=== PATIENT | male | born 1965 | race Caucasian/White ===

== ENCOUNTER 2016-07-16 13:41 | Inpatient (IN) | payer OTHER ==
[~2016-07-16] VITALS: Ht 172.7 cm; Wt 68.9 kg
[2016-07-16] MEDS ORDERED: LORAZEPAM 2 MG/ML 1 ML VIAL IV STA (14:18)
--- NOTE | 2016-07-16 14:53 | DIAGNOSTIC IMAGING REPORT ---
CT SCAN OF THE BRAIN WITHOUT IV CONTRAST CLINICAL HISTORY: Seizure. COMPARISON STUDY: CT of the brain dated 01/17/2015. TECHNIQUE: Unenhanced axial CT scan of the brain is performed from the vertex to the skull base. Automated dose control exposure was utilized. CT DOSE: 810.83 mGy.cm FINDINGS: Brain parenchyma: The brain parenchyma is normal in appearance. There is no hemorrhage, mass effect, or evidence of acute territorial ischemia by CT criteria. Serna-white matter is preserved. No extra-axial fluid collection is seen. Ventricles, sulci, cisterns: Normal in configuration. Intracranial vasculature: The visualized intracranial vasculature at the skull base is normal in appearance. Calvarium: Unremarkable. Sinuses and mastoids: The visualized paranasal sinuses are clear. The mastoid air cells are well pneumatized. Orbits: The bony orbits are grossly intact. IMPRESSION: There is no hemorrhage, mass effect, or evidence of acute territorial ischemia by CT criteria. Electronically signed by: Cristian Mason M.D. 07/16/2016 2:51 PM Dictated Date/Time: 07/16/2016 2:43 PM
[2016-07-16 14:54] LABS: BASO % 0.5 %; BASO ABS # 0.03 K/uL (0-0.2); COMPLETE YES; EOS % 0.2 %; HEMATOCRIT 39.6 % (42-52); IG% 0.3 %; LYMPH % 7.5 %; MEAN CELL VOLUME 97.5 fL (80-100); MEAN CORPUSCULAR HEMOGLOBIN 34.5 pg (25-34); MEAN CORPUSCULAR HGB CONC 35.4 g/dl (32-36); MEAN PLATELET VOLUME 11.7 fL (7.4-10.4); MONO % 3.5 %; PLATELET COUNT 112 K/uL (130-400); RED BLOOD COUNT 4.06 M/uL (4.7-6.1); WHITE BLOOD COUNT 6.65 K/uL (4.8-10.8)
[2016-07-16 14:55] LABS: PROTHROMBIN TIME (PATIENT) 10.5 SECONDS (9.0-12.0)
[2016-07-16 15:03] LABS: BUN/CREATININE RATIO 5.8 (10-20); CALCIUM 9.6 mg/dl (8.5-10.1); CREATININE 1.2 mg/dl (0.60-1.40); MAGNESIUM 1.4 mg/dl (1.8-2.4); POTASSIUM 3.8 mmol/L (3.5-5.1)
[2016-07-16] MEDS ORDERED: MAGNESIUM SULFATE 1GM / D5W 1 GM BAG IV STA (15:05)
[2016-07-16 15:11] LABS: ACETAMINOPHEN < 2 ug/ml (10-30)
[2016-07-16] MEDS ORDERED: ONDANSETRON INJ 2 MG/ML 2 ML VIAL IV PRN (16:45)
[2016-07-16] MEDS ORDERED: CHLORDIAZEPOXIDE 25 MG CAP PO SCH (16:45)
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
[2016-07-16] MEDS ORDERED: OXYCODONE HCL IR 5 MG TAB (IMMEDIATE RELEASE) PO SCH (16:55)
[2016-07-16] MEDS ORDERED: THIAMINE HCL 100 MG TAB PO STA (17:04)
[2016-07-16] MEDS ORDERED: SODIUM CHLORIDE 0.9% 1000ML 1,000 ML IV ONE (17:45)
[2016-07-16] MEDS ORDERED: LORAZEPAM 2 MG/ML 1 ML VIAL IV PRN (17:45)
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
[2016-07-16 17:49] LABS: BENZODIAZEPINE, URINE NEG (NEG); COCAINE,URINE NEG (NEG); PHENCYCLIDINE, URINE NEG (NEG)
[2016-07-16 18:11] VITALS: BP 131/81; PULSE 105; TEMP 37.5; O2SAT 100; Ht 172.7 cm; Wt 68.9 kg
[2016-07-16] MEDS ORDERED: MULTI-VITAMIN INFUSION INJ 10 ML, THIAMINE HCL INJ 100 MG, FoLIC ACID INJ 1 MG in SODIU... IV SCH (18:30)
[2016-07-16] MEDS: CHLORDIAZEPOXIDE 25MG 1ST DOSE PO SCH (19:29)
[2016-07-16] MEDS: ENOXAPARIN 40 MG/0.4 ML SYR SC SCH (19:30)
[2016-07-16 19:33] VITALS: BP 142/75; PULSE 97; TEMP 36.7; O2SAT 97
[2016-07-16] MEDS ORDERED: INFLUENZA ADMINISTRATION CHARGE ONE (21:15)
[2016-07-16] MEDS ORDERED: INFLUENZA VIRUS QUAD VACCINE 0.5 ML SYR IM. ONE (21:15)
[2016-07-16] MEDS: SODIUM CHLORIDE 0.9% 1000ML 1,000 ML IV SCH (22:27)
[2016-07-16 23:38] VITALS: BP 117/76; PULSE 83; TEMP 37.3; O2SAT 98
[2016-07-17] VITALS (10 sets, daily range): BP systolic 106–127; BP diastolic 69–83; PULSE 74–95; TEMP 36.8–37.4; O2SAT 96–99
[2016-07-17] MEDS: OXYCODONE HCL IR 5 MG TAB (IMMEDIATE RELEASE) PO SCH ×4 (00:26→20:33)
[2016-07-17] MEDS: CHLORDIAZEPOXIDE 25MG 1ST DOSE PO SCH ×3 (00:26→11:42)
[2016-07-17] MEDS: SODIUM CHLORIDE 0.9% 1000ML 1,000 ML IV SCH ×3 (06:11→20:39)
[2016-07-17 06:37] LABS: HEMATOCRIT 33.5 % (42-52); MEAN CELL VOLUME 99.4 fL (80-100); MEAN CORPUSCULAR HEMOGLOBIN 33.5 pg (25-34); MEAN CORPUSCULAR HGB CONC 33.7 g/dl (32-36); RED BLOOD COUNT 3.37 M/uL (4.7-6.1); WHITE BLOOD COUNT 6.13 K/uL (4.8-10.8)
[2016-07-17 06:40] LABS: MEAN PLATELET VOLUME 11.6 fL (7.4-10.4); PLATELET COUNT 87 K/uL (130-400)
[2016-07-17 06:49] LABS: PROTHROMBIN TIME (PATIENT) 10.5 SECONDS (9.0-12.0)
[2016-07-17 07:10] LABS: BUN/CREATININE RATIO 7.5 (10-20); CALCIUM 8.2 mg/dl (8.5-10.1); MAGNESIUM 2.1 mg/dl (1.8-2.4); POTASSIUM 3.5 mmol/L (3.5-5.1); URIC ACID 6.2 mg/dl (2.6-7.2)
[2016-07-17 07:15] LABS: CREATININE 0.81 mg/dl (0.60-1.40)
[2016-07-17] MEDS: THIAMINE HCL 100 MG TAB PO SCH (07:39)
[2016-07-17] MEDS: FoLIC ACID TAB 400 MCG TAB PO SCH (07:39)
[2016-07-17] MEDS ORDERED: COLCHICINE 0.6 MG TAB PO SCH (09:00)
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
[2016-07-17] MEDS ORDERED: LORAZEPAM 1 MG TAB PO PRN (15:00)
--- NOTE | 2016-07-17 17:22 | Progress Note ---
Subjective Date of Service: Jul 17, 2016. Subjective Pt evaluation today including: conversation w/ patient, physical exam, chart review, lab review, review of inpatient medication list feeling better, no further seizures. wants to go home. still shaky. last drink friday night wants to quit, notes that he relapsed due to stressors with son legal issues, but notes son has been cleared of all charges. notes that he likes to fish. thinks he could do that for stress management. Problem List Medical Problems: (1) Alcohol withdrawal seizure Status: Acute (2) Seizures Status: Acute Review of Systems Neurologic: + see HPI (tremors, no seizures) ros otherwise negative except for as above Objective Vital Signs Date Time Temp Pulse Resp B/P Pulse Ox O2 Delivery O2 Flow Rate FiO2 07/17/16 15:53 97 07/17/16 15:53 97 Room Air 07/17/16 15:40 36.8 85 18 122/83 98 Room Air 07/17/16 11:59 98 Room Air 07/17/16 11:56 37.1 95 20 122/74 98 Room Air 07/17/16 08:00 98 Room Air 07/17/16 07:43 36.9 88 22 106/69 97 Room Air 07/17/16 04:01 37.0 88 18 127/69 99 Room Air 07/17/16 04:00 Room Air 07/17/16 00:00 Room Air 07/16/16 23:38 37.3 83 18 117/76 98 Room Air 07/16/16 20:00 Room Air 07/16/16 19:33 36.7 97 18 142/75 97 Room Air 07/16/16 18:11 37.5 105 18 131/81 100 Room Air Physical Exam General Appearance: no apparent distress Eyes: EOMI ENT: hearing grossly normal Neck: trachea midline Respiratory/Chest: no respiratory distress, no accessory muscle use 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 somewhat hypervigilant and frequent movements) Skin: normal color, warm/dry Laboratory Results Last 24 Hours Test 07/17/16 06:02 White Blood Count 6.13 K/uL Red Blood Count 3.37 M/uL Hemoglobin 11.3 g/dL Hematocrit 33.5 % Mean Corpuscular Volume 99.4 fL Mean Corpuscular Hemoglobin 33.5 pg Mean Corpuscular Hemoglobin Concent 33.7 g/dl RDW Standard Deviation 53.1 fL RDW Coefficient of Variation 14.7 % Platelet Count 87 K/uL Mean Platelet Volume 11.6 fL Prothrombin Time 10.5 SECONDS Prothromb Time International Ratio 1.0 Sodium Level 140 mmol/L Potassium Level 3.5 mmol/L Chloride Level 104 mmol/L Carbon Dioxide Level 27 mmol/L Anion Gap 9.0 mmol/L Blood Urea Nitrogen 6 mg/dl Creatinine 0.81 mg/dl Est Creatinine Clear Calc Drug Dose 102.0 ml/min Estimated GFR () 117.6 Estimated GFR (Non- 101.5 BUN/Creatinine Ratio 7.5 Random Glucose 92 mg/dl Uric Acid 6.2 mg/dl Calcium Level 8.2 mg/dl Magnesium Level 2.1 mg/dl Total Bilirubin 1.0 mg/dl Direct Bilirubin 0.3 mg/dl Aspartate Amino Transf (AST/SGOT) 218 U/L Alanine Aminotransferase (ALT/SGPT) 101 U/L Alkaline Phosphatase 141 U/L Total Protein 5.7 gm/dl Albumin 2.9 gm/dl Assessment and Plan DT's / EtOH withdrawal seizures -appearing more stable -anxious to go home - d/w pt that given time since last drink only ~48hrs and just seized yesterday, it would not really be all that safe (discussed it's possible that he wouldn't seize further, but that at the same time he's still very much in the window to seize more and status epilepticus can be life threatening/life ending event) -can wean librium -ativan prn withdrawal and obviously stat prn seizures EtOH abuse -appears to drink in response to stress -discussed healthier means of stress management - will try to use hobbies like fishing instead. discussed probably having at least one other "go to" option so that he has more than just one means to manage stress -risks of ongoing drinking have been described to him alcoholic hepatitis -fortunately no elevated bili or INR. -LFTs trended down some - f/u as outpt thrombocytopenia -almost certainly from EtOH related bone marrow suppression DVT proph -lovenox (will continue to follow plt) dispo - due to risk for recurrent seizure felt it most prudent to keep pt in hospital at least until tomorrow. by that time, on less librium, if he's not looking worse with withdrawal and has not seized again, he'd very likely be safe for home Continued [facility] stay due to: other (further monitoring) Discharge planning: home
[2016-07-17] MEDS ORDERED: CHLORDIAZEPOXIDE 25MG Q8H DOSE PO SCH (20:00)
[2016-07-17] MEDS: ENOXAPARIN 40 MG/0.4 ML SYR SC SCH (20:38)
[2016-07-18 00:01] VITALS: O2SAT 97
[2016-07-18] MEDS: SODIUM CHLORIDE 0.9% 1000ML 1,000 ML IV SCH ×2 (00:47→07:20)
[2016-07-18 03:12] VITALS: BP 125/75; PULSE 85; TEMP 36.9; O2SAT 95
[2016-07-18 04:00] VITALS: O2SAT 95
[2016-07-18] MEDS: OXYCODONE HCL IR 5 MG TAB (IMMEDIATE RELEASE) PO SCH (05:08)
[2016-07-18 06:30] LABS: HEMATOCRIT 32.6 % (42-52); MEAN CELL VOLUME 100.3 fL (80-100); MEAN CORPUSCULAR HEMOGLOBIN 34.5 pg (25-34); MEAN CORPUSCULAR HGB CONC 34.4 g/dl (32-36); RED BLOOD COUNT 3.25 M/uL (4.7-6.1); WHITE BLOOD COUNT 5.31 K/uL (4.8-10.8)
[2016-07-18 06:35] LABS: BASO % 0.2 %; BASO ABS # 0.01 K/uL (0-0.2); COMPLETE YES; EOS % 1.9 %; IG% 0.6 %; LYMPH % 19.4 %; LYMPH ABS # 1.03 K/uL (1.2-3.4); MEAN PLATELET VOLUME 11.7 fL (7.4-10.4); NEUT % 68.9 %; PLATELET COUNT 87 K/uL (130-400)
[2016-07-18 06:54] LABS: BUN/CREATININE RATIO 9.1 (10-20); CALCIUM 8.6 mg/dl (8.5-10.1); CREATININE 0.69 mg/dl (0.60-1.40); POTASSIUM 3.6 mmol/L (3.5-5.1)
[2016-07-18 07:37] VITALS: BP 137/83; PULSE 93; TEMP 37.3; O2SAT 98
--- NOTE | 2016-07-18 07:53 | Medical Student: [facility] ---
Med Student Progress Note Date of Service Jul 18, 2016. Subjective Pt evaluation today including: conversation w/ patient, physical exam, chart review, lab review, review of studies Pain: controlled PO Intake: tolerating po diet no acute events overnight. patient reports feeling well and says that his tremor has gotten better. denies any nausea, diarrhea, or constipation. says that his ankle pain and swelling continues to improve. no other complaints. Review of Systems Constitutional: No chills, No fever Respiratory: No cough Cardiac: No chest pain Abdomen: No nausea, No pain Objective Vital Signs Date Time Temp Pulse Resp B/P Pulse Ox O2 Delivery O2 Flow Rate FiO2 07/18/16 07:37 37.3 93 16 137/83 98 Room Air 07/18/16 04:00 95 Room Air 07/18/16 03:12 36.9 85 18 125/75 95 Room Air 07/18/16 00:01 97 Room Air 07/17/16 23:28 37.0 74 18 117/71 97 Room Air 07/17/16 20:00 96 Room Air 07/17/16 19:12 37.4 87 18 125/80 96 Room Air 07/17/16 15:53 97 07/17/16 15:53 97 Room Air 07/17/16 15:40 36.8 85 18 122/83 98 Room Air 07/17/16 11:59 98 Room Air 07/17/16 11:56 37.1 95 20 122/74 98 Room Air 07/17/16 08:00 98 Room Air Physical Exam General Appearance: WD/WN, no apparent distress Eyes: bilateral eyes normal inspection ENT: hearing grossly normal, pharynx normal Neck: supple, no JVD Respiratory/Chest: chest non-tender, lungs clear, normal breath sounds Cardiovascular: regular rate, rhythm, no gallop, no murmur Abdomen: normal bowel sounds, non tender, soft Extremities: no pedal edema, + swelling (mild swelling of anterior ankle) Neurologic/Psychiatric: alert, normal mood/affect, oriented x 3 Skin: normal color, warm/dry, no rash Laboratory Results Last 24 Hours Test 07/18/16 05:45 White Blood Count 5.31 K/uL Red Blood Count 3.25 M/uL Hemoglobin 11.2 g/dL Hematocrit 32.6 % Mean Corpuscular Volume 100.3 fL Mean Corpuscular Hemoglobin 34.5 pg Mean Corpuscular Hemoglobin Concent 34.4 g/dl Platelet Count 87 K/uL Mean Platelet Volume 11.7 fL Neutrophils (%) (Auto) 68.9 % Lymphocytes (%) (Auto) 19.4 % Monocytes (%) (Auto) 9.0 % Eosinophils (%) (Auto) 1.9 % Basophils (%) (Auto) 0.2 % Neutrophils # (Auto) 3.66 K/uL Lymphocytes # (Auto) 1.03 K/uL Monocytes # (Auto) 0.48 K/uL Eosinophils # (Auto) 0.10 K/uL Basophils # (Auto) 0.01 K/uL RDW Standard Deviation 52.4 fL RDW Coefficient of Variation 14.4 % Immature Granulocyte % (Auto) 0.6 % Immature Granulocyte # (Auto) 0.03 K/uL Sodium Level 141 mmol/L Potassium Level 3.6 mmol/L Chloride Level 106 mmol/L Carbon Dioxide Level 24 mmol/L Anion Gap 11.0 mmol/L Blood Urea Nitrogen 6 mg/dl Creatinine 0.69 mg/dl Est Creatinine Clear Calc Drug Dose 119.8 ml/min Estimated GFR () 125.6 Estimated GFR (Non- 108.4 BUN/Creatinine Ratio 9.1 Random Glucose 87 mg/dl Calcium Level 8.6 mg/dl Medications Current Inpatient Medications Medications (Trade) Dose Ordered Sig/Liss Route Start Time Stop Time Status Last Admin Dose Admin Sodium Chloride (Nss 1000ml) 1,000 ml @ 125 mls/hr Q8H IV 07/16/16 16:43 08/15/16 16:42 07/18/16 00:47 125 MLS/HR Thiamine HCl (Vitamin B-1 Tab) 100 mg DAILY PO 07/17/16 09:00 08/16/16 08:59 07/17/16 07:39 100 MG Enoxaparin Sodium (Lovenox Inj) 40 mg QPM SC 07/16/16 21:00 08/15/16 20:59 07/17/16 20:38 40 MG Ondansetron HCl (Zofran Inj) 4 mg Q6H PRN IV 07/16/16 16:45 08/15/16 16:44 Oxycodone HCl (Roxicodone Immediate Rel Tab) 10 mg TID PO 07/16/16 21:00 07/30/16 20:59 07/18/16 05:08 10 MG Lorazepam (Ativan Inj) 1 mg NOW PRN IV 07/16/16 17:45 08/15/16 17:44 Folic Acid (Folvite Tab) 400 mcg QAM PO 07/17/16 09:00 08/16/16 08:59 07/17/16 07:39 400 MCG Lorazepam (Ativan Tab) UD PRN PO 07/17/16 15:00 08/16/16 14:59 Assessment and Plan Assessment and Plan: this is a 51 yo man with a history of alcohol abuse who presented with seizure and presumed alcohol withdrawal 1. Alcohol withdrawal: appears stable, with no further seizures - last drink 07/15/16 - given AWSS between 0-1 for the past 24 hours, appears to be recovering well since seizure - no librium use since scheduled doses were d/c yesterday at 11 am - no need for further monitoring 2. Alcohol abuse: motivated to stop drinking - liver function tests indicate inflammation but no significant permanent damage - patient was counseled on options for alcohol rehab upon discharge as well as strategies for maintaining sobriety 2. Chronic pain: - continue 10 mg oxycodone po tid as needed for pain 3. DVT prophylaxis with lovenox Continued [facility] stay due to: other (further monitoring) Discharge planning: home
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
[2016-07-18] MEDS ORDERED: FLV1 PO (08:08)
[2016-07-18] MEDS ORDERED: THM100 PO (08:08)
[2016-07-18] MEDS: FoLIC ACID TAB 400 MCG TAB PO SCH (08:11)
[2016-07-18] MEDS: THIAMINE HCL 100 MG TAB PO SCH (08:11)
--- NOTE | 2016-07-18 08:27 | Discharge Instructions ---
Discharge Instructions Admission Reason for Admission: Alcohol Withdraw Seizure, Alcoholic, Delirium Discharge Discharge Diagnosis / Problem: alcohol withdrawal seizure Discharge Goals Goal(s): Diagnostic testing, Therapeutic intervention Activity Recommendations Activity Limitations: resume your previous activity . Instructions / Follow-Up Instructions / Follow-Up alcohol withdrawal - Alcohol withdrawal is caused by stopping drinking after long periods of regular drinking. For you, this presented initially as a seizure which brought you into the hospital - Based on how you improved at the hospital, we think it's unlikely that you will have any further seizures. - The best way you can avoid having these symptoms again is by continuing to avoid drinking. - If you begin to feel any more symptoms or have any further seizures you should come back to the hospital immediately. alcohol abuse - Based on our conversations with you in the hospital, it seems you're ready to quit drinking. - We encourage the use of resources that you were educated on here, such as outpatient or inpatient rehab programs, but at the end of the day, it's your decision to stop or continue drinking. A lot of the struggle will be finding motivation to stay sober and strategies to manage stress other than with alcohol. - If you need any more information about treatment for alcohol abuse, you can speak with a nursing home social worker or with your primary care doctor. inflamed liver (alcoholic hepatitis) - Lab tests showed some inflammation of the liver. This is not uncommon in someone with a significant drinking history. However, your liver still appears to be working properly to filter toxins and produce important proteins for your body. 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 low platelets - Low platelets can also be due to drinking. Alcohol can suppress your body's production of blood products. Again, this number should be improved by continuing to avoid alcohol. we'll have you get follow up labs in about 2 weeks (results will go to Dr Hamilton) to make sure your liver numbers and platelet counts are heading to normal. Current Hospital Diet Patient's current hospital diet: Regular Diet Discharge Diet Recommended Diet: Regular Diet Pending Studies Studies pending at discharge: no Medical Emergencies . Who to Call and When: Medical Emergencies: If at any time you feel your situation is an emergency, please call 911 immediately. . Non-Emergent Contact Non-Emergency issues call your: Primary Care Provider . . "Provider Documentation" section prepared by Filiberto Paul. VTE Core Measure Inpt VTE Proph given/why not?: Enoxaparin (Lovenox)SQ
[2016-07-18 08:34] VITALS: BP 137/83; PULSE 93; TEMP 37.3; O2SAT 98
--- NOTE | 2016-07-18 15:56 | Discharge Summary ---
Discharge Summary Admission Date: Jul 16, 2016 at 16:54 Discharge Date: Jul 18, 2016 Discharge Disposition: Home Principal Diagnosis: Etoh withdrawal seizures Procedures: CLINICAL HISTORY: Seizure. COMPARISON STUDY: CT of the brain dated 01/17/2015. TECHNIQUE: Unenhanced axial CT scan of the brain is performed from the vertex to the skull base. Automated dose control exposure was utilized. CT DOSE: 810.83 mGy.cm FINDINGS: Brain parenchyma: The brain parenchyma is normal in appearance. There is no hemorrhage, mass effect, or evidence of acute territorial ischemia by CT criteria. Serna-white matter is preserved. No extra-axial fluid collection is seen. Ventricles, sulci, cisterns: Normal in configuration. Intracranial vasculature: The visualized intracranial vasculature at the skull base is normal in appearance. Calvarium: Unremarkable. Sinuses and mastoids: The visualized paranasal sinuses are clear. The mastoid air cells are well pneumatized. Orbits: The bony orbits are grossly intact. IMPRESSION: There is no hemorrhage, mass effect, or evidence of acute territorial ischemia by CT criteria. Electronically signed by: Cristian Mason M.D. 07/16/2016 2:51 PM Dictated Date/Time: 07/16/2016 2:43 PM 07/16/16 14:25 Red Blood Count 4.06, Mean Corpuscular Volume 97.5, Mean Corpuscular Hemoglobin 34.5, Mean Corpuscular Hemoglobin Concent 35.4, Mean Platelet Volume 11.7, Neutrophils (%) (Auto) 88.0, Lymphocytes (%) (Auto) 7.5, Monocytes (%) (Auto) 3.5, Eosinophils (%) (Auto) 0.2, Basophils (%) (Auto) 0.5, Neutrophils # (Auto) 5.86, Lymphocytes # (Auto) 0.50, Monocytes # (Auto) 0.23, Eosinophils # (Auto) 0.01, Basophils # (Auto) 0.03 07/17/16 06:02 07/18/16 05:45 Red Blood Count 3.25, Mean Corpuscular Volume 100.3, Mean Corpuscular Hemoglobin 34.5, Mean Corpuscular Hemoglobin Concent 34.4, Mean Platelet Volume 11.7, Neutrophils (%) (Auto) 68.9, Lymphocytes (%) (Auto) 19.4, Monocytes (%) ( Auto) 9.0, Eosinophils (%) (Auto) 1.9, Basophils (%) (Auto) 0.2, Neutrophils # ( Auto) 3.66, Lymphocytes # (Auto) 1.03, Monocytes # (Auto) 0.48, Eosinophils # ( Auto) 0.10, Basophils # (Auto) 0.01 07/16/16 14:25 07/17/16 06:02 07/18/16 05:45 Test 07/16/16 00:00 07/16/16 14:25 07/16/16 16:45 07/17/16 06:02 Vitamin B12 Level 880 pg/mL (211-911) Folate 4.91 ng/mL (>5.38) Hepatitis C Antibody NEG (NEG) White Blood Count 6.65 K/uL (4.8-10.8) Red Blood Count 4.06 M/uL (4.7-6.1) 3.37 M/uL (4.7-6.1) Hemoglobin 14.0 g/dL (14.0-18.0) Hematocrit 39.6 % (42-52) Mean Corpuscular Volume 97.5 fL (80-100) 99.4 fL (80-100) Mean Corpuscular Hemoglobin 34.5 pg (25-34) 33.5 pg (25-34) Mean Corpuscular Hemoglobin Concent 35.4 g/dl (32-36) 33.7 g/dl (32-36) Platelet Count 112 K/uL (130-400) Mean Platelet Volume 11.7 fL (7.4-10.4) 11.6 fL (7.4-10.4) Neutrophils (%) (Auto) 88.0 % Lymphocytes (%) (Auto) 7.5 % Monocytes (%) (Auto) 3.5 % Eosinophils (%) (Auto) 0.2 % Basophils (%) (Auto) 0.5 % Neutrophils # (Auto) 5.86 K/uL (1.4-6.5) Lymphocytes # (Auto) 0.50 K/uL (1.2-3.4) Monocytes # (Auto) 0.23 K/uL (0.11-0.59) Eosinophils # (Auto) 0.01 K/uL (0-0.5) Basophils # (Auto) 0.03 K/uL (0-0.2) RDW Standard Deviation 51.4 fL (36.4-46.3) 53.1 fL (36.4-46.3) RDW Coefficient of Variation 14.5 % (11.5-14.5) 14.7 % (11.5-14.5) Immature Granulocyte % (Auto) 0.3 % Immature Granulocyte # (Auto) 0.02 K/uL (0.00-0.02) Prothrombin Time 10.5 SECONDS (9.0-12.0) 10.5 SECONDS (9.0-12.0) Prothromb Time International Ratio 1.0 (0.9-1.1) 1.0 (0.9-1.1) Activated Partial Thromboplast Time 25.2 SECONDS (21.0-31.0) Partial Thromboplastin Ratio 1.0 Anion Gap 20.0 mmol/L (3-11) 9.0 mmol/L (3-11) Est Creatinine Clear Calc Drug Dose 70.0 ml/min 102.0 ml/min Estimated GFR () 79.5 117.6 Estimated GFR (Non- 68.6 101.5 BUN/Creatinine Ratio 5.8 (10-20) 7.5 (10-20) Calcium Level 9.6 mg/dl (8.5-10.1) 8.2 mg/dl (8.5-10.1) Magnesium Level 1.4 mg/dl (1.8-2.4) 2.1 mg/dl (1.8-2.4) Total Bilirubin 0.9 mg/dl (0.2-1) 1.0 mg/dl (0.2-1) Direct Bilirubin 0.3 mg/dl (0-0.2) 0.3 mg/dl (0-0.2) Aspartate Amino Transf (AST/SGOT) 297 U/L (15-37) 218 U/L (15-37) Alanine Aminotransferase (ALT/SGPT) 138 U/L (12-78) 101 U/L (12-78) Alkaline Phosphatase 190 U/L (45-117) 141 U/L (45-117) Total Protein 7.1 gm/dl (6.4-8.2) 5.7 gm/dl (6.4-8.2) Albumin 3.9 gm/dl (3.4-5.0) 2.9 gm/dl (3.4-5.0) Salicylates Level < 1.7 mg/dl (2.8-20) Acetaminophen Level < 2 ug/ml (10-30) Ethyl Alcohol mg/dL < 3.0 mg/dl (0-3) Urine Opiates Screen POS (NEG) Urine Methadone, Qualitative NEG (NEG) Urine Barbiturates NEG (NEG) Urine Phencyclidine (PCP) Level NEG (NEG) Ur Amphetamine/Methamphetamine NEG (NEG) MDMA (Ecstasy) Screen NEG (NEG) Urine Benzodiazepines Screen NEG (NEG) Urine Cocaine Metabolite NEG (NEG) Urine Marijuana (THC) NEG (NEG) Uric Acid 6.2 mg/dl (2.6-7.2) Test 07/18/16 05:45 White Blood Count 5.31 K/uL (4.8-10.8) Red Blood Count 3.25 M/uL (4.7-6.1) Hemoglobin 11.2 g/dL (14.0-18.0) Hematocrit 32.6 % (42-52) Mean Corpuscular Volume 100.3 fL (80-100) Mean Corpuscular Hemoglobin 34.5 pg (25-34) Mean Corpuscular Hemoglobin Concent 34.4 g/dl (32-36) Platelet Count 87 K/uL (130-400) Mean Platelet Volume 11.7 fL (7.4-10.4) Neutrophils (%) (Auto) 68.9 % Lymphocytes (%) (Auto) 19.4 % Monocytes (%) (Auto) 9.0 % Eosinophils (%) (Auto) 1.9 % Basophils (%) (Auto) 0.2 % Neutrophils # (Auto) 3.66 K/uL (1.4-6.5) Lymphocytes # (Auto) 1.03 K/uL (1.2-3.4) Monocytes # (Auto) 0.48 K/uL (0.11-0.59) Eosinophils # (Auto) 0.10 K/uL (0-0.5) Basophils # (Auto) 0.01 K/uL (0-0.2) RDW Standard Deviation 52.4 fL (36.4-46.3) RDW Coefficient of Variation 14.4 % (11.5-14.5) Immature Granulocyte % (Auto) 0.6 % Immature Granulocyte # (Auto) 0.03 K/uL (0.00-0.02) Anion Gap 11.0 mmol/L (3-11) Est Creatinine Clear Calc Drug Dose 119.8 ml/min Estimated GFR () 125.6 Estimated GFR (Non- 108.4 BUN/Creatinine Ratio 9.1 (10-20) Calcium Level 8.6 mg/dl (8.5-10.1) Last 24 Hours Test 07/18/16 05:45 White Blood Count 5.31 K/uL Red Blood Count 3.25 M/uL Hemoglobin 11.2 g/dL Hematocrit 32.6 % Mean Corpuscular Volume 100.3 fL Mean Corpuscular Hemoglobin 34.5 pg Mean Corpuscular Hemoglobin Concent 34.4 g/dl Platelet Count 87 K/uL Mean Platelet Volume 11.7 fL Neutrophils (%) (Auto) 68.9 % Lymphocytes (%) (Auto) 19.4 % Monocytes (%) (Auto) 9.0 % Eosinophils (%) (Auto) 1.9 % Basophils (%) (Auto) 0.2 % Neutrophils # (Auto) 3.66 K/uL Lymphocytes # (Auto) 1.03 K/uL Monocytes # (Auto) 0.48 K/uL Eosinophils # (Auto) 0.10 K/uL Basophils # (Auto) 0.01 K/uL RDW Standard Deviation 52.4 fL RDW Coefficient of Variation 14.4 % Immature Granulocyte % (Auto) 0.6 % Immature Granulocyte # (Auto) 0.03 K/uL Sodium Level 141 mmol/L Potassium Level 3.6 mmol/L Chloride Level 106 mmol/L Carbon Dioxide Level 24 mmol/L Anion Gap 11.0 mmol/L Blood Urea Nitrogen 6 mg/dl Creatinine 0.69 mg/dl Est Creatinine Clear Calc Drug Dose 119.8 ml/min Estimated GFR () 125.6 Estimated GFR (Non- 108.4 BUN/Creatinine Ratio 9.1 Random Glucose 87 mg/dl Calcium Level 8.6 mg/dl Medication Reconciliation New Medications: Folic Acid (Folic Acid) 1 Mg Tab 1 TAB PO DAILY for 30 Days, #30 TAB Thiamine HCl (Vitamin B-1) 100 Mg Tab 1 TAB PO DAILY, #30 TAB Continued Medications: Oxycodone Hcl (Oxycodone Hcl) 10 Mg Tab 10 MG PO TID, TAB Discharge Exam Physical Exam: General Appearance: no apparent distress Eyes: EOMI ENT: hearing grossly normal Neck: trachea midline Respiratory/Chest: no respiratory distress, no accessory muscle use Extremities: normal inspection 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 no seizures since night of admission, hasn't had benzos since yesterday. appearing stable to go home EtOH abuse -appears to drink in response to stress -discussed healthier means of stress management - will try to use hobbies like fishing instead. discussed probably having at least one other "go to" option so that he has more than just one means to manage stress -risks of ongoing drinking have been described to him alcoholic hepatitis -fortunately no elevated bili or INR. -LFTs trended down some - f/u as outpt ~2wks thrombocytopenia -almost certainly from EtOH related bone marrow suppression; stable, f/u 2wks DVT proph -lovenox utilized during his stay dispo - stable for home Total Time Spent: Less than 30 minutes This includes examination of the patient, discharge planning, medication reconciliation, and communication with other providers. Discharge Instructions Please refer to the electronic Patient Visit Report (Discharge Instructions) for additional information. Follow-Up has PCP appt [phone] this AM Additional Copies To Vinh Hamilton M.D.
[2016-07-18] MEDS ORDERED: CHLORDIAZEPOXIDE 10MG Q8H DOSE PO SCH (20:00)
[2016-07-19 17:00] LABS: COD UR NEGATIVE NG/ML (CUTOFF=50); HYDROCOD UR NEGATIVE NG/ML (CUTOFF=50); HYDROMOR UR 2650 NG/ML (CUTOFF=50); MORPHINE UR NEGATIVE NG/ML (CUTOFF=50); NORHYDROCODONE CONF UR NEGATIVE NG/ML (CUTOFF=50); OXYMORPH UR NEGATIVE NG/ML (CUTOFF=50)
[2016-07-20] MEDS ORDERED: CHLORDIAZEPOXIDE 5MG Q12H DOSE PO SCH
[2016-11-25] MEDS ORDERED: OXYC-164 PO (17:16)
[2016-12-01] MEDS ORDERED: FLV1 PO (08:34)
[2016-12-01] MEDS ORDERED: MULT-589 PO (08:34)
[2016-12-01] MEDS ORDERED: LBR25 PO (08:34)
== END 2016-07-18 08:30 | disposition home or self-care (01) | DRG 897 ==
LOC: ENRESERVDT → ENRESERVTM → C.EDB 13:42 → C.2T 16:54
PROVIDERS: ADMIT Hospitalist; ATTEND Family Medicine
DX: F10.231 Alcohol dependence with withdrawal delirium (principal); D69.59 Other secondary thrombocytopenia; R56.9 Unspecified convulsions; T51.0X2A Toxic effect of ethanol, intentional self-harm, initial encounter; M10.9 Gout, unspecified; R03.0 Elevated blood-pressure reading, without diagnosis of hypertension; K70.10 Alcoholic hepatitis without ascites; F17.210 Nicotine dependence, cigarettes, uncomplicated; G89.29 Other chronic pain; M54.2 Cervicalgia; M79.605 Pain in left leg; V89.2XXS Person injured in unspecified motor-vehicle accident, traffic, sequela; F32.9 Major depressive disorder, single episode, unspecified; M19.90 Unspecified osteoarthritis, unspecified site; Z23 Encounter for immunization; Z86.79 Personal history of other diseases of the circulatory system; Z79.891 Long term (current) use of opiate analgesic

== ENCOUNTER 2016-11-25 18:31 | Inpatient (IN) | payer OTHER ==
[~2016-11-25] VITALS: Ht 170.2 cm; Wt 70.7 kg
[~2016-11-25 18:31] MED LIST: FLV1 PO; OXYC-164 PO; THM100 PO
[2016-11-25] MEDS ORDERED: ONDANSETRON INJ 2 MG/ML 2 ML VIAL IV STA (19:01)
[2016-11-25] MEDS ORDERED: LORAZEPAM 2 MG/ML 1 ML VIAL IV STA (19:01)
[2016-11-25] MEDS ORDERED: SODIUM CHLORIDE 0.9% 1000ML 500 ML IV STA (19:01)
[2016-11-25] MEDS ORDERED: MULTI-VITAMIN INFUSION INJ 10 ML, THIAMINE HCL INJ 100 MG, FoLIC ACID INJ 1 MG in SODIU... IV ONE ×2 (19:15→21:45)
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
--- NOTE | 2016-11-25 19:31 | DIAGNOSTIC IMAGING REPORT ---
CHEST ONE VIEW PORTABLE CLINICAL HISTORY: ALCOHOL OD dyspnea COMPARISON STUDY: No previous studies for comparison. FINDINGS: The bones soft tissues and hemidiaphragms are normal. The cardiomediastinal silhouette is normal. The lungs are clear. The pulmonary vasculature is normal. IMPRESSION: Negative chest. Electronically signed by: Andrea Tomlin M.D. 11/25/2016 7:29 PM Dictated Date/Time: 11/25/2016 7:29 PM
[2016-11-25 19:32] LABS: BASO % 0.2 %; BASO ABS # 0.03 K/uL (0-0.2); COMPLETE YES; EOS % 0.9 %; HEMATOCRIT 46.5 % (42-52); IG% 0.3 %; LYMPH % 16.4 %; LYMPH ABS # 2.12 K/uL (1.2-3.4); MEAN CELL VOLUME 91.4 fL (80-100); MEAN CORPUSCULAR HEMOGLOBIN 32.4 pg (25-34); MEAN CORPUSCULAR HGB CONC 35.5 g/dl (32-36); MEAN PLATELET VOLUME 10.1 fL (7.4-10.4); MONO % 8.5 %; NEUT % 73.7 %; PLATELET COUNT 170 K/uL (130-400); RED BLOOD COUNT 5.09 M/uL (4.7-6.1); WHITE BLOOD COUNT 12.89 K/uL (4.8-10.8)
[2016-11-25 19:42] LABS: INR 0.9 (0.9-1.1); PROTHROMBIN TIME (PATIENT) 9.4 SECONDS (9.0-12.0)
[2016-11-25 19:53] LABS: ALT/SGPT 92 U/L (12-78); AST/SGOT 166 U/L (15-37); BLOOD UREA NITROGEN 12 mg/dl (7-18); BUN/CREATININE RATIO 13.1 (10-20); CALCIUM 8.7 mg/dl (8.5-10.1); CARBON DIOXIDE 26 mmol/L (21-32); CHLORIDE 106 mmol/L (98-107); GLUCOSE 113 mg/dl (70-99); MAGNESIUM 2.5 mg/dl (1.8-2.4); SODIUM 143 mmol/L (136-145)
[2016-11-25] MEDS ORDERED: MoRPHine SULFATE 4 MG/ML 1 ML CARP\\VIAL IV STA (20:00)
[2016-11-25 20:04] LABS: ALKALINE PHOSPHATASE 177 U/L (45-117)
--- NOTE | 2016-11-25 20:20 | DIAGNOSTIC IMAGING REPORT ---
HEAD CT NONCONTRAST CT DOSE: 651.12 mGy.cm HISTORY: Mental status change EVALUATE FOR TRAUMA- ALCOHOL OVERDOSE TECHNIQUE: Multiaxial CT images of the head were performed without the use of intravenous contrast. Comparison: 07/16/2016 Findings: The paranasal sinuses and mastoid air cells are clear. Mild cerebellar as well as frontal cerebral atrophy. Ventricular system is midline. No evidence for acute intracranial hemorrhage. No midline shift. Impression: Age-related atrophy. No acute process. Electronically signed by: Andrea Tomlin M.D. 11/25/2016 8:19 PM Dictated Date/Time: 11/25/2016 8:18 PM
[2016-11-25 21:05] LABS: URINE APPEARANCE CLEAR (CLEAR); URINE BILIRUBIN NEG (NEG); URINE COLOR YELLOW; URINE NITRITE NEG (NEG); URINE SPECIFIC GRAVITY 1.022 (1.000-1.030); UROBILINOGEN NEG (NEG)
[2016-11-25 21:07] LABS: MANUAL MICROSCOPIC REQUIRED? NO; REVIEW REQ? NO
[2016-11-25 21:25] LABS: BENZODIAZEPINE, URINE NEG (NEG); COCAINE,URINE NEG (NEG); PHENCYCLIDINE, URINE NEG (NEG)
[2016-11-25] MEDS ORDERED: CHOLCAP2 PO (21:37)
[2016-11-25] MEDS ORDERED: THIA100T11 PO (21:37)
[2016-11-25] MEDS ORDERED: OXYCODONE HCL IR 5 MG TAB (IMMEDIATE RELEASE) PO PRN (21:45)
[2016-11-25] MEDS ORDERED: ONDANSETRON INJ 2 MG/ML 2 ML VIAL IV PRN (21:45)
[2016-11-25] MEDS ORDERED: MAGNESIUM HYDROXIDE SUSP 30 ML UDC PO PRN (21:45)
[2016-11-25] MEDS ORDERED: ACETAMINOPHEN 325 MG TAB PO PRN (21:45)
[2016-11-25] MEDS ORDERED: LORAZEPAM 2 MG/ML 1 ML VIAL IV PRN (21:45)
[2016-11-25] MEDS ORDERED: ALUMINUM/MAGNESIUM/SIMETH (MAALOX MAX) 30 ML UDC PO PRN (21:45)
[2016-11-25] MEDS ORDERED: POLYETHYLENE (MIRALAX) 17 GM PACK PO PRN (21:45)
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
[2016-11-25 22:53] VITALS: BP 112/67; PULSE 84; TEMP 37.1; O2SAT 94; Ht 170.2 cm; Wt 70.7 kg
[2016-11-25] MEDS ORDERED: D5NSS + 20MEQ KCL 1,000 ML IV SCH (23:00)
[2016-11-25] MEDS ORDERED: NURSING DECISION MEDICATION ORDER SCH (23:00)
[2016-11-25] MEDS: LORAZEPAM 2 MG/ML 1 ML VIAL IV PRN (23:28)
[2016-11-25] MEDS: CHLORDIAZEPOXIDE 25 MG CAP PO SCH (23:28)
[2016-11-26] VITALS (7 sets, daily range): BP systolic 100–136; BP diastolic 58–75; PULSE 63–85; TEMP 36.4–37.6; O2SAT 94–97
[2016-11-26] MEDS ORDERED: COUGH DROP (SUGAR FREE) LOZ 24 LOZ/1 BOX PO PRN (00:30)
[2016-11-26] MEDS: LORAZEPAM 2 MG/ML 1 ML VIAL IV PRN ×7 (02:46→23:43)
[2016-11-26] MEDS: OXYCODONE HCL IR 5 MG TAB (IMMEDIATE RELEASE) PO PRN ×5 (04:45→21:30)
[2016-11-26] MEDS: CHLORDIAZEPOXIDE 25 MG CAP PO SCH ×3 (05:38→21:29)
[2016-11-26 07:53] LABS: BUN/CREATININE RATIO 14.9 (10-20); CALCIUM 7.6 mg/dl (8.5-10.1); CREATININE 0.83 mg/dl (0.60-1.40); MAGNESIUM 1.9 mg/dl (1.8-2.4); POTASSIUM 3.8 mmol/L (3.5-5.1)
[2016-11-26] MEDS: MULTI-VITAMIN INFUSION INJ 10 ML, THIAMINE HCL INJ 100 MG, FoLIC ACID INJ 1 MG in SODIU... IV SCH (08:36)
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
[2016-11-27] VITALS (14 sets, daily range): BP systolic 118–180; BP diastolic 68–102; PULSE 52–80; TEMP 36.4–37.6; O2SAT 92–97
[2016-11-27] MEDS: OXYCODONE HCL IR 5 MG TAB (IMMEDIATE RELEASE) PO PRN ×3 (01:35→11:39)
[2016-11-27] MEDS: LORAZEPAM 2 MG/ML 1 ML VIAL IV PRN ×5 (02:21→09:32)
[2016-11-27] MEDS ORDERED: CLONIDINE HCL 0.1 MG TAB PO PRN (04:00)
--- NOTE | 2016-11-27 04:04 | Progress Note ---
Progress Note Date of Service November 27, 2016. Progress Note patient required 3 mg of ativan per protocol, additionally added clonidine prn for control of withdrawal symptoms
[2016-11-27] MEDS: CHLORDIAZEPOXIDE 25 MG CAP PO SCH ×3 (05:35→21:17)
[2016-11-27 08:10] LABS: BUN/CREATININE RATIO 9.5 (10-20); CREATININE 0.8 mg/dl (0.60-1.40); HEMATOCRIT 37.7 % (42-52); MAGNESIUM 1.7 mg/dl (1.8-2.4); MEAN CELL VOLUME 91.1 fL (80-100); MEAN CORPUSCULAR HEMOGLOBIN 30.7 pg (25-34); MEAN CORPUSCULAR HGB CONC 33.7 g/dl (32-36); MEAN PLATELET VOLUME 10.2 fL (7.4-10.4); PLATELET COUNT 100 K/uL (130-400); POTASSIUM 3.5 mmol/L (3.5-5.1); RED BLOOD COUNT 4.14 M/uL (4.7-6.1)
[2016-11-27 08:48] LABS: CALCIUM 8.7 mg/dl (8.5-10.1)
[2016-11-27] MEDS: MULTI-VITAMIN INFUSION INJ 10 ML, THIAMINE HCL INJ 100 MG, FoLIC ACID INJ 1 MG in SODIU... IV SCH (09:10)
--- NOTE | 2016-11-27 11:09 | Psychiatric Progress Notes ---
Psychiatric Progress Note Date of Service November 27, 2016. Notes Psychiatric consult received for depression. Patient confused, disorganized, tremulous, unable to participate in psychiatric interview. His nurse asked that he not be disturbed as he has been more agitated. Recommend he be treated for alcohol withdrawal/DTs per primary service. Please contact us once he has stabilized medically, if there are concerns for depression or another psychiatric question.
[2016-11-27] MEDS: DexMEDEtomidine HCL IV 200 MCG in SODIUM CHLORIDE 0.9% 50ML 48 ML IV PRN ×2 (11:15→15:37)
[2016-11-27] MEDS ORDERED: CLONIDINE HCL 0.1 MG TAB PO ONE (11:15)
[2016-11-27] MEDS ORDERED: THIAMINE HCL INJ 500 MG in SODIUM CHLORIDE 0.9% 50ML 50 ML IV ONE (11:15)
--- NOTE | 2016-11-27 11:19 | Hospitalist Progress Note ---
Hospitalist Progress Note Date of Service November 27, 2016. Subjective Pt evaluation today including: conversation w/ patient, physical exam, chart review, lab review, review of studies, review of inpatient medication list Patient seen and evaluated. Spoke with nursing staff who reports that he started presenting with more confusion early yesterday afternoon. He has continued to have more tremors, confusion, and diaphoresis. Easily agitated and requiring higher dosing of IV Ativan. Upon assessment today he is alert and oriented to self, location, and month. When asked the date he initially said the 27 then fixated on this and started saying 7, 17, 27, then said no its the 17 right? Is able to follow commands but attention is limited. Had phone in hand staring at a number on his inpatient folder. Asked him if I can assess him and he said yes, then stated "I have to call my to help her with a job, it will only take an hour" and was pushing random buttons on the phone. Sitter is at bedside as patient impulsively gets out of bed. Eyes appear bloodshot and edematous, tremor present, looks slightly hypervigilant. Additional Comments: ROS deferred as patient is confused and agitated. Medications Current Inpatient Medications Medications (Trade) Dose Ordered Sig/Liss Route Start Time Stop Time Status Last Admin Dose Admin Acetaminophen (Tylenol Tab) 650 mg Q4H PRN PO 11/25/16 21:45 12/25/16 21:44 Al Hydrox/Mg Hydrox/Simethicone (Maalox Max Susp) 15 ml Q4H PRN PO 11/25/16 21:45 12/25/16 21:44 Magnesium Hydroxide (Milk Of Magnesia Susp) 30 ml Q12H PRN PO 11/25/16 21:45 12/25/16 21:44 Polyethylene (Miralax Powder Packet) 17 gm DAILY PRN PO 11/25/16 21:45 12/25/16 21:44 Chlordiazepoxide 25 mg 25 mg Q8 PO 11/25/16 23:00 12/25/16 22:59 11/27/16 05:35 25 MG Multivitamins/ Thiamine HCl/ Folic Acid/Sodium Chloride (Mvi Infusion Inj/Vitamin B-1 Inj/Folvite Inj/ Nss 1000ml) 1,011.2 ml @ 75 mls/hr Q24H IV 11/26/16 09:00 11/27/16 09:10 999 MLS/HR Menthol (Nice Sascha) 1 sascha PRN PRN PO 11/26/16 00:30 12/26/16 00:29 Oxycodone HCl (Roxicodone Immediate Rel Tab) 10 mg Q4H PRN PO 11/26/16 04:34 12/10/16 04:33 11/27/16 05:59 10 MG Lorazepam (Ativan Inj) PRN Dosing -Active Protocol Q1H PRN IV 11/26/16 09:00 12/26/16 08:59 11/27/16 09:32 1 MG Clonidine HCl 0.2 mg 0.2 mg TID PO 11/27/16 10:14 12/27/16 10:13 UNV Thiamine HCl 500 mg/Sodium Chloride 55 ml @ 208 mls/hr TID IV 11/27/16 14:00 11/29/16 13:59 UNV Thiamine HCl 500 mg/Sodium Chloride 55 ml @ 208 mls/hr 1014 ONCE IV 11/27/16 10:14 11/27/16 10:29 UNV Thiamine HCl 250 mg/Sodium Chloride 52.5 ml @ 208 mls/hr DAILY IV 11/29/16 10:00 12/04/16 09:59 UNV Dexmedetomidine HCl/Sodium Chloride (PreCEDEX INJ/ Nss 50ml) 50 ml @ 0 mls/hr UD STAT IV 11/27/16 10:14 11/27/16 10:15 UNV Objective Vital Signs Date Time Temp Pulse Resp B/P Pulse Ox O2 Delivery O2 Flow Rate FiO2 11/27/16 10:35 36.8 80 18 97 11/27/16 09:30 36.8 80 18 118/68 97 Room Air 11/27/16 08:28 36.8 67 18 121/80 97 Room Air 11/27/16 08:00 Room Air 11/27/16 04:00 Room Air 11/27/16 04:00 37.6 70 20 124/72 94 Room Air 11/26/16 23:59 Room Air 11/26/16 23:36 36.9 63 18 136/75 97 Room Air 11/26/16 20:05 36.4 85 24 107/64 97 Room Air 11/26/16 20:00 Room Air 11/26/16 16:00 Room Air 11/26/16 15:08 36.9 66 22 101/59 97 Room Air 11/26/16 12:09 37.6 82 24 119/73 96 Room Air 11/26/16 12:00 Room Air Physical Exam General Appearance: WD/WN, + moderate distress (confused, tremors, agitation) Eyes: PERRL, + abnormal sclerae exam (mildly icteric) ENT: hearing grossly normal Neck: supple, no JVD, trachea midline Respiratory/Chest: lungs clear, no respiratory distress, no accessory muscle use, + decreased breath sounds Cardiovascular: regular rate, rhythm, no gallop, no murmur Abdomen: normal bowel sounds, non tender, soft Extremities: no pedal edema, no calf tenderness Neurologic/Psychiatric: alert, oriented x 3 (however has bizarre behavior) Laboratory Results Last 24 Hours Test 11/27/16 06:55 White Blood Count 7.90 K/uL Red Blood Count 4.14 M/uL Hemoglobin 12.7 g/dL Hematocrit 37.7 % Mean Corpuscular Volume 91.1 fL Mean Corpuscular Hemoglobin 30.7 pg Mean Corpuscular Hemoglobin Concent 33.7 g/dl RDW Standard Deviation 55.7 fL RDW Coefficient of Variation 16.6 % Platelet Count 100 K/uL Mean Platelet Volume 10.2 fL Sodium Level 138 mmol/L Potassium Level 3.5 mmol/L Chloride Level 103 mmol/L Carbon Dioxide Level 26 mmol/L Anion Gap 9.0 mmol/L Blood Urea Nitrogen 8 mg/dl Creatinine 0.80 mg/dl Est Creatinine Clear Calc Drug Dose 99.9 ml/min Estimated GFR () 118.2 Estimated GFR (Non- 102.0 BUN/Creatinine Ratio 9.5 Random Glucose 93 mg/dl Calcium Level 8.7 mg/dl Magnesium Level 1.7 mg/dl Assessment and Plan Mr. Lehman is a 51 y/o male with ETOH and previous withdrawal seizures (on previous attempts to become sober) and complaints of nausea and diarrhea which both have resolved. Reports being sober since discharge in July but relapsed. Reports drinking 1- 2 bottles wine/day ( per ED note reports drinking sometimes more) he also will intermittently drink liquor and beer. Also takes Oxycodone Q4H for chronic pain and didn't take those meds prior to admission and reports he feels that he withdrawals slightly from them as well and that caused the diarrhea. Wernicke's Encephalopathy: 1-2 bottles wine/day and +: Last drink 11/25: H/O Previous Withdrawal Seizures - Transferred to ICU for AMS and DTs - Seizure precautions - fall/aspiration precautions - Monitor LFTs - AWSS protocol with Librium 25 mg Q8H - Consult Intensivists - appreciated assistance - discussed case with Dr. Benjamin -- Precedex and thiamine infusion URI Symptoms: - Reports lozenges have helped - will continue to monitor Chronic Back Pain: - Oxycodone 10 mg Q4H PRN DVT Prophylaxis: CLARE/SCDs Code Status: FULL RESUSCITATION Disposition: - Fashion Consultant following - patient is considering inpatient detox -- Legal issues pending with possible fpc time - Consult psychiatry - patient is tearful and expresses desire to speak to someone - significant withdrawal symptoms at this time Continued [facility] stay due to: multiple IV medications needed
[2016-11-27] MEDS ORDERED: ENOXAPARIN 40 MG/0.4 ML SYR SQ ONE (11:51)
[2016-11-27] MEDS ORDERED: MAGNESIUM SULFATE 1GM / D5W 1 GM in PREMIXED IN D5W 100 ML IV ONE (12:15)
[2016-11-27] MEDS: CLONIDINE HCL 0.1 MG TAB PO SCH ×2 (14:10→21:16)
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
[2016-11-27] MEDS: THIAMINE HCL INJ 500 MG in SODIUM CHLORIDE 0.9% 50ML 50 ML IV SCH ×2 (15:37→23:00)
[2016-11-27] MEDS: SODIUM CHLORIDE 0.9% IV PRN (18:35)
[2016-11-27] MEDS: DEXMEDETOMIDINE HCL IV PRN (18:35)
[2016-11-28] VITALS (12 sets, daily range): BP systolic 62–180; BP diastolic 43–97; PULSE 49–108; TEMP 36.5; O2SAT 96–98
[2016-11-28] MEDS: OXYCODONE HCL IR 5 MG TAB (IMMEDIATE RELEASE) PO PRN ×5 (03:25→23:41)
[2016-11-28] MEDS: SODIUM CHLORIDE 0.9% IV PRN (03:34)
[2016-11-28] MEDS: DEXMEDETOMIDINE HCL IV PRN (03:34)
[2016-11-28 06:02] LABS: HEMATOCRIT 40.5 % (42-52); MEAN CORPUSCULAR HEMOGLOBIN 31.1 pg (25-34); MEAN CORPUSCULAR HGB CONC 34.6 g/dl (32-36); MEAN PLATELET VOLUME 10.4 fL (7.4-10.4); PLATELET COUNT 104 K/uL (130-400); WHITE BLOOD COUNT 5.76 K/uL (4.8-10.8)
[2016-11-28 06:35] LABS: CALCIUM 8.7 mg/dl (8.5-10.1); CREATININE 0.68 mg/dl (0.60-1.40); MAGNESIUM 2.1 mg/dl (1.8-2.4); POTASSIUM 3.6 mmol/L (3.5-5.1)
[2016-11-28 06:38] LABS: PHOSPHORUS 2.8 mg/dl (2.5-4.9)
[2016-11-28] MEDS: CHLORDIAZEPOXIDE 25 MG CAP PO SCH ×3 (06:49→21:06)
[2016-11-28] MEDS: MULTI-VITAMIN INFUSION INJ 10 ML, THIAMINE HCL INJ 100 MG, FoLIC ACID INJ 1 MG in SODIU... IV SCH (07:49)
[2016-11-28] MEDS: CLONIDINE HCL 0.1 MG TAB PO SCH ×3 (08:47→21:06)
[2016-11-28] MEDS: POTASSIUM CHLORIDE 20 MEQ TABCR PO SCH ×2 (08:47→11:28)
[2016-11-28] MEDS: ENOXAPARIN 40 MG/0.4 ML SYR SQ SCH (08:48)
[2016-11-28] MEDS ORDERED: NURSING VERBAL MED ORDER ONE (09:15)
[2016-11-28] MEDS ORDERED: FLINTSTONES COMPLETE CHEWABLE TAB PO ONE (09:25)
[2016-11-28] MEDS ORDERED: SODIUM CHLORIDE 0.9% 500ML 500 ML IV ONE (09:30)
--- NOTE | 2016-11-28 10:56 | Critical Care Progress Note ---
Critical Care Progress Note Date of Service November 28, 2016. ICU Day ICU Day Number: [address] Sahu Subjective Feel less agitated today Does have chronic neck and back pain which continue to bother but home oxycodone regimen is helping No issues overnight, has been sleeping, eating and drinking without difficulty Objective Constitutional: Vital signs as above were reviewed. Eyes: Pupils equal, round, and reactive to light. Extraocular muscles are intact. No proptosis. No photophobia. ENT: Mucous membranes are moist. Oropharynx is clear. No sinus tenderness. TMs are clear bilaterally. Cardiovascular: Heart with a regular rate and rhythm. Pulses are palpable and symmetric in all 4 extremities. No pedal edema appreciated. Respiratory: Lungs clear to auscultation bilaterally. No wheezes, rales, or rhonchi appreciated. No accessory muscle use. No retractions. No increased work of breathing. GI: Abdomen soft, nontender, nondistended. Normal active bowel sounds. No abdominal hernias appreciated. No rebound. No guarding. : No CVA tenderness appreciated. Musculoskeletal: No midline cervical or vertebral tenderness. No gross deformities. No bony tenderness. No calf swelling or tenderness. Integumentary: Warm, dry, no rashes appreciated. Neurological: Patient awake, alert, and oriented x 3. Cranial nerves two through 12 grossly intact. Motor 5 out of 5 strength bilateral upper and lower extremities. Lymph: No cervical lymphadenopathy appreciated. Current SOFA Score SOFA Score Response (Comments) Value Platelets (x10) < 150 1 Bilirubin (mg/dL) < 1.2 0 Duarte Coma Score 15 0 Level of Hypotension No Hypotension 0 Creatinine (mg/dL) < 1.2 0 Total 1 Assessment & Plan (1) Alcohol withdrawal (2) Alcohol abuse (3) Altered mental status (4) Alcohol withdrawal seizure (5) Delirium tremens (6) Transaminitis (7) Head injury (8) Platelets decreased (9) Back pain NEUROLOGICAL - GCS: 15; alert and oriented x 3; - RASS score 0 - Dexmedetomidine infusion has been discontinued Chronic Back Pain - Pain regimen: Oxycodone 10 mg q4-6 hours PRN back pain Acute EtOH withdrawal - At risk for DTs and withdrawal seizures - Precedex discontinued; patient doing well off Precedex - Increase Clonidine to 0.3 TID as tolerated - Lorazepam PRN per AWSS; did not require additional breakthrough doses overnight - Continue Chlordiazepoxide 25 mg TID - Continue high dose thiamine regimen - Banana bag discontinued; change to PO 1 mg Folate daily 1 multivitamin tab daily - Discontinue 1 to 1 sitter CARDIAC - BP: stable, maintaining MAP 110-120 - No vasopressors or additional IV fluids at this time RESPIRATORY - RR: 16-18; SpO2 > 94% RA - Stable currently, continue to monitor GASTROINTESTINAL - Diet: Regular diet - GI Prophylaxis: Patient has regular diet, no PPI indicated Transaminitis - Continues to resolve, nearly normalized - Can discontinue CMP monitoring - Likely secondary to EtOH consumption prior to arrival RENAL//ENDOCRINE - Fluid Balance Cumulatively positive 1535 ml - Cr: 0.68 - Electrolytes: Grossly normal, no repletion indicated at this time - IV Fluids: None, patient tolerating PO diet - BSG: Monitor AC/HS; no history of diabetes Check HbA1c as patient likely has some degree of glucose resistance 2/2 chronic alcohol use HEMATOLOGY/ONCOLOGY - Tmax: Afebrile, WBC 14 - Hb/Hct stable at 14/40 16.5/46 on arrival; was 12 yesterday so this has improved and can be followed at this time without further work-up Mild Thrombocytopenia - Plt decreased from 170 on admission to 100; stable at 104 this morning - Plt 100 was before patient got heparin therefore not related to HIT - Reviewed EMR and patient has chronically low platelets, likely 2/2 alcohol abuse - Monitor daily DVT Prophylaxis: SCD Lovenox 40 mg daily LINES/IV ACCESS - Right forearm 18G - Left forearm 20 G CODE STATUS - Full Code DISPOSITION - OT/PT: Ordered - Patient is off Precedex infusion; stable for transfer to Med/Surg Resident Physician Supervision Note: Dr. Benjamin was resident physician during care of patient. I separately evaluated patient and did history and exam. I discussed the case with the resident and generally agree with the findings and plan. Weaned off precedex, all single breakthrough Ativan dosing, stable for downgraded to telemetry status Documented By: Jeremy Sahu DO [place] II Score Date Score Was Generated: November 29, 2016 Consults & Procedures Consultants: - Procedures: - Data Medications: Current Inpatient Medications Medications (Trade) Dose Ordered Sig/Liss Route Start Time Stop Time Status Last Admin Dose Admin Acetaminophen (Tylenol Tab) 650 mg Q4H PRN PO 11/25/16 21:45 12/25/16 21:44 Al Hydrox/Mg Hydrox/Simethicone (Maalox Max Susp) 15 ml Q4H PRN PO 11/25/16 21:45 12/25/16 21:44 Magnesium Hydroxide (Milk Of Magnesia Susp) 30 ml Q12H PRN PO 11/25/16 21:45 12/25/16 21:44 Polyethylene (Miralax Powder Packet) 17 gm DAILY PRN PO 11/25/16 21:45 12/25/16 21:44 Chlordiazepoxide (Librium Cap) 25 mg Q8 PO 11/25/16 23:00 12/25/16 22:59 11/28/16 06:49 25 MG Menthol (Nice Sascha) 1 sascha PRN PRN PO 11/26/16 00:30 12/26/16 00:29 Oxycodone HCl (Roxicodone Immediate Rel Tab) 10 mg Q4H PRN PO 11/26/16 04:34 12/10/16 04:33 11/28/16 09:07 10 MG Lorazepam PRN Dosing -Active Protocol Q1H PRN IV 11/26/16 09:00 12/26/16 08:59 11/27/16 09:32 1 MG Thiamine HCl/ Sodium Chloride (Vitamin B-1 Inj/ Nss 50ml) 52.5 ml @ 208 mls/hr DAILY@1000 IV 11/29/16 10:00 12/29/16 09:59 Enoxaparin Sodium (Lovenox Inj) 40 mg QAM SQ 11/28/16 09:00 12/28/16 08:59 11/28/16 08:48 40 MG Potassium Chloride (Klor-Con Tab) 20 meq Q4H PO 11/28/16 07:00 11/28/16 11:01 11/28/16 08:47 20 MEQ Clonidine HCl (Catapres Tab) 0.1 mg TID PO 11/28/16 14:00 12/28/16 13:59 Folic Acid (Folvite Tab) 1 mg QAM PO 11/29/16 09:00 12/29/16 08:59 Multivitamins (Flintstones Complete Tab) 1 tab QAM PO 11/29/16 09:00 12/29/16 08:59 I & O: 24-Hour Column 11/28/16 08:00 Intake Total 2024 ml Output Total 2675 ml Balance -651 ml Vital Signs: Date Time Temp Pulse Resp B/P Pulse Ox O2 Delivery O2 Flow Rate FiO2 11/28/16 06:00 71 17 100/69 97 11/28/16 04:00 49 16 169/84 96 Room Air 11/28/16 04:00 97 Room Air 11/28/16 02:00 52 16 180/94 98 Room Air 11/28/16 00:01 36.5 50 18 155/97 97 Room Air 11/28/16 00:00 97 Room Air 11/27/16 22:00 52 16 179/96 94 Room Air 11/27/16 20:03 53 19 165/100 95 Room Air 11/27/16 20:00 96 Room Air 11/27/16 18:07 53 16 167/78 94 Room Air 11/27/16 16:03 36.4 53 18 176/96 95 Room Air 11/27/16 16:00 Room Air 11/27/16 14:03 56 21 151/88 92 11/27/16 13:03 56 17 180/91 93 11/27/16 12:03 64 19 142/87 94 11/27/16 12:00 Room Air 11/27/16 11:29 36.8 11/27/16 11:03 74 22 143/102 97 Laboratory Results: Last 24 Hours Test 11/27/16 11:26 11/27/16 16:01 11/27/16 21:13 11/28/16 05:36 Bedside Glucose 93 mg/dl 141 mg/dl 174 mg/dl White Blood Count 5.76 K/uL Red Blood Count 4.50 M/uL Hemoglobin 14.0 g/dL Hematocrit 40.5 % Mean Corpuscular Volume 90.0 fL Mean Corpuscular Hemoglobin 31.1 pg Mean Corpuscular Hemoglobin Concent 34.6 g/dl RDW Standard Deviation 54.3 fL RDW Coefficient of Variation 16.5 % Platelet Count 104 K/uL Mean Platelet Volume 10.4 fL Sodium Level 141 mmol/L Potassium Level 3.6 mmol/L Chloride Level 106 mmol/L Carbon Dioxide Level 29 mmol/L Anion Gap 6.0 mmol/L Blood Urea Nitrogen 5 mg/dl Creatinine 0.68 mg/dl Est Creatinine Clear Calc Drug Dose 117.5 ml/min Estimated GFR () 126.4 Estimated GFR (Non- 109.0 BUN/Creatinine Ratio 7.0 Random Glucose 121 mg/dl Calcium Level 8.7 mg/dl Phosphorus Level 2.8 mg/dl Magnesium Level 2.1 mg/dl Total Bilirubin 0.7 mg/dl Direct Bilirubin 0.2 mg/dl Aspartate Amino Transf (AST/SGOT) 53 U/L Alanine Aminotransferase (ALT/SGPT) 45 U/L Alkaline Phosphatase 134 U/L Total Protein 6.9 gm/dl Albumin 3.2 gm/dl Test 11/28/16 06:27 11/28/16 09:25 Bedside Glucose 168 mg/dl Problem Qualifiers (1) Alcohol withdrawal: Complication of substance-induced condition: uncomplicated Qualified Codes: F10.230 - Alcohol dependence with withdrawal, uncomplicated (2) Altered mental status: Coma depth: Duarte coma 13-15
[2016-11-28 11:03] LABS: ESTIMATED AVERAGE GLUCOSE 120 mg/dl; HA1C FLAG Normal (Normal)
[2016-11-28] MEDS: LORAZEPAM 2 MG/ML 1 ML VIAL IV PRN ×2 (11:32→23:41)
--- NOTE | 2016-11-28 13:00 | Progress Note ---
Subjective Date of Service: November 28, 2016. Subjective Pt evaluation today including: conversation w/ patient, conversation w/ family , physical exam, chart review, lab review, review of studies, conversation w/ review consultant, review of inpatient medication list Significant hypotensive at 60s, reported dizziness, which required IV fluid bothers this morning, orthostatic positive during the therapy Patient reported tired Requesting more pain medication for the chronic pain Problem List Medical Problems: (1) Alcohol abuse Status: Chronic (2) Alcohol withdrawal seizure Status: Acute (3) Frequent falls Status: Acute (4) Lightheadedness Status: Acute (5) Seizures Status: Acute Review of Systems Constitutional: + fatigue, + weakness, No chills, No fever, No problem reported , No sweats, No weight loss Eyes: No diplopia, No discharge, No eye pain, No redness, No worsening of vision ENT: No dental problems, No hearing loss, No nasal symptoms, No sore throat, No tinnitus, No trouble swallowing, No unusual epistaxis Respiratory: No cough, No dyspnea at rest, No dyspnea on exertion, No hemoptysis, No shortness of breath, No sputum, No wheezing Cardiac: No PND, No chest pain, No claudication, No edema, No orthopnea, No palpitations Abdomen: No constipation, No diarrhea, No nausea, No pain, No vomiting Musculoskeletal: + joint pain, No calf pain, No muscle pain, No swelling Male : No dysuria, No hematuria, No incontinence, No nocturia more than once/ night, No slowing stream, No urinary frequency Neurologic: No balance problems, No memory loss, No numbness/tingling, No paralysis, No vertigo, No weakness Psychiatric: No anhedonism, No anxiety, No depression symptoms, No insomnia, No substance abuse Heme: No abnormal bleeding/bruising, No clotting problems, No night sweats, No swollen lymph nodes Endo: No excessive thirst, No excessive urination, No fatigue Skin: No bleeding, No color change, No itch, No new/changing skin lesions, No rash Objective Vital Signs Date Time Temp Pulse Resp B/P Pulse Ox O2 Delivery O2 Flow Rate FiO2 11/28/16 12:00 36.5 108 14 99/61 97 Room Air 11/28/16 12:00 Room Air 11/28/16 10:00 36.5 75 15 101/76 97 Room Air 11/28/16 09:00 36.5 78 15 91/70 97 Room Air 11/28/16 08:00 36.5 91 19 62/43 98 Room Air 11/28/16 08:00 Room Air 11/28/16 06:00 71 17 100/69 97 11/28/16 04:00 49 16 169/84 96 Room Air 11/28/16 04:00 97 Room Air 11/28/16 02:00 52 16 180/94 98 Room Air 11/28/16 00:01 36.5 50 18 155/97 97 Room Air 11/28/16 00:00 97 Room Air 11/27/16 22:00 52 16 179/96 94 Room Air 11/27/16 20:03 53 19 165/100 95 Room Air 11/27/16 20:00 96 Room Air 11/27/16 18:07 53 16 167/78 94 Room Air 11/27/16 16:03 36.4 53 18 176/96 95 Room Air 11/27/16 16:00 Room Air 11/27/16 14:03 56 21 151/88 92 11/27/16 13:03 56 17 180/91 93 Physical Exam General Appearance: WD/WN, no apparent distress, + pertinent finding (looked tired mild pale) Eyes: normal inspection, PERRL, EOMI, sclerae normal ENT: normal ENT inspection, hearing grossly normal, pharynx normal Neck: supple, no adenopathy, thyroid normal, no JVD, no carotid bruits, trachea midline Respiratory/Chest: chest non-tender, normal breath sounds, no respiratory distress, no accessory muscle use, + decreased breath sounds Cardiovascular: regular rate, rhythm, no edema, no gallop, no JVD, no murmur Abdomen: normal bowel sounds, non tender, soft, no organomegaly, no pulsatile mass Extremities: normal range of motion, non-tender, normal inspection, no pedal edema, no calf tenderness, normal capillary refill, pelvis stable 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, no motor/sensory deficits, alert, normal mood/affect, oriented x 3 Skin: normal color, warm/dry, no rash Lymphatic: no adenopathy Laboratory Results Last 24 Hours Test 11/27/16 16:01 11/27/16 21:13 11/28/16 05:36 11/28/16 06:27 Bedside Glucose 141 mg/dl 174 mg/dl 168 mg/dl White Blood Count 5.76 K/uL Red Blood Count 4.50 M/uL Hemoglobin 14.0 g/dL Hematocrit 40.5 % Mean Corpuscular Volume 90.0 fL Mean Corpuscular Hemoglobin 31.1 pg Mean Corpuscular Hemoglobin Concent 34.6 g/dl RDW Standard Deviation 54.3 fL RDW Coefficient of Variation 16.5 % Platelet Count 104 K/uL Mean Platelet Volume 10.4 fL Sodium Level 141 mmol/L Potassium Level 3.6 mmol/L Chloride Level 106 mmol/L Carbon Dioxide Level 29 mmol/L Anion Gap 6.0 mmol/L Blood Urea Nitrogen 5 mg/dl Creatinine 0.68 mg/dl Est Creatinine Clear Calc Drug Dose 117.5 ml/min Estimated GFR () 126.4 Estimated GFR (Non- 109.0 BUN/Creatinine Ratio 7.0 Random Glucose 121 mg/dl Estimated Average Glucose 120 mg/dl Hemoglobin A1c 5.8 % Calcium Level 8.7 mg/dl Phosphorus Level 2.8 mg/dl Magnesium Level 2.1 mg/dl Total Bilirubin 0.7 mg/dl Direct Bilirubin 0.2 mg/dl Aspartate Amino Transf (AST/SGOT) 53 U/L Alanine Aminotransferase (ALT/SGPT) 45 U/L Alkaline Phosphatase 134 U/L Total Protein 6.9 gm/dl Albumin 3.2 gm/dl Test 11/28/16 11:20 Bedside Glucose 102 mg/dl Assessment and Plan 51 y/o male with admitted on 11/25/2016 because of nausea and diarrhea , and alcohol abuse, transferred to ICU because worsening agitation and anxiety and possible pending delirium, improved hx of ETOH abuse and previous withdrawal seizures ETOH Abuse and Withdrawal: Possible delirium from alcohol withdrawal yesterday, totally resolved Currently has hypotensive, likely from the medication of clonidine,, hold and decreasing the dose and use as tolerated 1-2 bottles wine/day and +: Last drink 11/25: H/O Previous Withdrawal Seizures - Seizure precautions - monitor on tele - fall/aspiration precautions - LFTs elevated upon admission likely because of alcohol intake which damage the liver , is trending down - mild icteric sclera,. 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
[2016-11-28 21:02] LABS: COD UR NEGATIVE NG/ML (CUTOFF=50); HYDROCOD UR NEGATIVE NG/ML (CUTOFF=50); HYDROMOR UR NEGATIVE NG/ML (CUTOFF=50); MORPHINE UR 519 NG/ML (CUTOFF=50); NORHYDROCODONE CONF UR NEGATIVE NG/ML (CUTOFF=50); OXYMORPH UR NEGATIVE NG/ML (CUTOFF=50)
[2016-11-29] VITALS: BP 141/80; PULSE 69; TEMP 36.7; O2SAT 98
[2016-11-29 04:00] VITALS: BP 133/80; PULSE 69; TEMP 36.6; O2SAT 96; O2SAT 98
[2016-11-29] MEDS: OXYCODONE HCL IR 5 MG TAB (IMMEDIATE RELEASE) PO PRN ×5 (05:04→23:09)
[2016-11-29] MEDS: CHLORDIAZEPOXIDE 25 MG CAP PO SCH ×3 (05:55→21:46)
[2016-11-29 06:31] LABS: HEMATOCRIT 38.9 % (42-52); MEAN CELL VOLUME 92.2 fL (80-100); MEAN CORPUSCULAR HGB CONC 33.7 g/dl (32-36); MEAN PLATELET VOLUME 10.8 fL (7.4-10.4); PLATELET COUNT 122 K/uL (130-400); RED BLOOD COUNT 4.22 M/uL (4.7-6.1); WHITE BLOOD COUNT 5.62 K/uL (4.8-10.8)
[2016-11-29 07:00] LABS: BUN/CREATININE RATIO 10.4 (10-20); CALCIUM 8.6 mg/dl (8.5-10.1); CREATININE 0.74 mg/dl (0.60-1.40); MAGNESIUM 2.1 mg/dl (1.8-2.4); POTASSIUM 3.6 mmol/L (3.5-5.1)
[2016-11-29 07:01] LABS: PHOSPHORUS 2.8 mg/dl (2.5-4.9)
[2016-11-29] MEDS: CLONIDINE HCL 0.1 MG TAB PO SCH ×3 (07:57→21:46)
[2016-11-29] MEDS: ENOXAPARIN 40 MG/0.4 ML SYR SQ SCH (07:58)
[2016-11-29 08:00] VITALS: BP 139/75; PULSE 124; TEMP 36.9; O2SAT 97
[2016-11-29] MEDS: LORAZEPAM 2 MG/ML 1 ML VIAL IV PRN ×2 (08:04→20:02)
[2016-11-29] MEDS ORDERED: FLINTSTONES COMPLETE CHEWABLE TAB PO SCH (09:00)
[2016-11-29] MEDS: THIAMINE HCL INJ 250 MG in SODIUM CHLORIDE 0.9% 50ML 50 ML IV SCH (09:42)
[2016-11-29 12:00] VITALS: BP 114/70; PULSE 130; TEMP 37; O2SAT 98
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
--- NOTE | 2016-11-29 13:54 | Progress Note ---
Subjective Date of Service: November 29, 2016. 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, review of inpatient medication list Doing better, out of bed to rest room, no dizziness, no anxiety, however and this morning need one dose of Ativan, blood pressure stable Problem List Medical Problems: (1) Alcohol abuse Status: Chronic (2) Alcohol withdrawal seizure Status: Acute (3) Frequent falls Status: Acute (4) Lightheadedness Status: Acute (5) Seizures Status: Acute Review of Systems Constitutional: + fatigue, No chills, No fever, No problem reported, No sweats , No weakness, No weight loss Eyes: No diplopia, No discharge, No eye pain, No redness, No worsening of vision ENT: No dental problems, No hearing loss, No nasal symptoms, No sore throat, No tinnitus, No trouble swallowing, No unusual epistaxis Respiratory: No cough, No dyspnea at rest, No dyspnea on exertion, No hemoptysis, No shortness of breath, No sputum, No wheezing Cardiac: No PND, No chest pain, No claudication, No edema, No orthopnea, No palpitations Abdomen: No constipation, No diarrhea, No nausea, No pain, No vomiting Musculoskeletal: No calf pain, No joint pain, No muscle pain, No swelling Male : No dysuria, No hematuria, No incontinence, No nocturia more than once/ night, No slowing stream, No urinary frequency Neurologic: No balance problems, No memory loss, No numbness/tingling, No paralysis, No vertigo, No weakness Psychiatric: No anhedonism, No anxiety, No depression symptoms, No insomnia, No substance abuse Heme: No abnormal bleeding/bruising, No clotting problems, No night sweats, No swollen lymph nodes Endo: No excessive thirst, No excessive urination, No fatigue Skin: No bleeding, No color change, No itch, No new/changing skin lesions, No rash Objective Vital Signs Date Time Temp Pulse Resp B/P Pulse Ox O2 Delivery O2 Flow Rate FiO2 11/29/16 08:00 97 Room Air 11/29/16 08:00 36.9 124 16 139/75 97 Room Air 11/29/16 04:00 98 Room Air 11/29/16 04:00 36.6 69 16 133/80 96 Room Air 11/29/16 00:00 36.7 69 20 141/80 98 Room Air 11/29/16 00:00 98 Room Air 11/28/16 20:00 Room Air 11/28/16 18:00 36.5 78 14 106/73 96 Room Air 11/28/16 16:00 36.5 100 21 96/62 97 Room Air 11/28/16 16:00 Room Air 11/28/16 14:00 36.5 61 16 86/70 96 Room Air Physical Exam General Appearance: WD/WN, no apparent distress Eyes: normal inspection, PERRL, EOMI, sclerae normal ENT: normal ENT inspection, hearing grossly normal, pharynx normal Neck: supple, no adenopathy, thyroid normal, no JVD, no carotid bruits, trachea midline Respiratory/Chest: chest non-tender, lungs clear, normal breath sounds, no respiratory distress, no accessory muscle use Cardiovascular: regular rate, rhythm, no edema, no gallop, no JVD, no murmur Abdomen: normal bowel sounds, non tender, soft, no organomegaly, no pulsatile mass Extremities: normal range of motion, non-tender, normal inspection, no pedal edema, no calf tenderness, normal capillary refill, pelvis stable 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, no motor/sensory deficits, alert, normal mood/affect, oriented x 3 Skin: normal color, warm/dry, no rash Lymphatic: no adenopathy Laboratory Results Last 24 Hours Test 11/28/16 16:07 11/29/16 06:15 Bedside Glucose 101 mg/dl White Blood Count 5.62 K/uL Red Blood Count 4.22 M/uL Hemoglobin 13.1 g/dL Hematocrit 38.9 % Mean Corpuscular Volume 92.2 fL Mean Corpuscular Hemoglobin 31.0 pg Mean Corpuscular Hemoglobin Concent 33.7 g/dl RDW Standard Deviation 57.9 fL RDW Coefficient of Variation 17.1 % Platelet Count 122 K/uL Mean Platelet Volume 10.8 fL Sodium Level 142 mmol/L Potassium Level 3.6 mmol/L Chloride Level 108 mmol/L Carbon Dioxide Level 25 mmol/L Anion Gap 9.0 mmol/L Blood Urea Nitrogen 8 mg/dl Creatinine 0.74 mg/dl Est Creatinine Clear Calc Drug Dose 108.0 ml/min Estimated GFR () 122.1 Estimated GFR (Non- 105.3 BUN/Creatinine Ratio 10.4 Random Glucose 91 mg/dl Calcium Level 8.6 mg/dl Phosphorus Level 2.8 mg/dl Magnesium Level 2.1 mg/dl Assessment and Plan 51 y/o male with admitted on 11/25/2016 because of nausea and diarrhea , and alcohol abuse, transferred to ICU because worsening agitation and anxiety and possible pending delirium, improved ETOH Abuse and Withdrawal: Stable and improving hx of ETOH abuse and previous withdrawal seizures Was having possible delirium from alcohol withdrawal on 11/27/2016, that is the reason she was transferred to ICU , improved/ no any signs of delirium Was having hypotensive on 11/28/2016, likely from the medication of clonidine, which require IV bolus and IV fluid, improved and resolved, 1-2 bottles wine/day and +: Last drink 11/25: H/O Previous Withdrawal Seizures - Seizure precautions - monitor on tele - fall/aspiration precautions - AWSS protocol with Librium 25 mg Q8H and Ativan PRN per protocol - Banana Bag daily for 3 days and then switch to oral multiple vitamin , thiamine and folate acid Possible history of marijuana use disorder, will follow-up - LFTs elevated upon admission likely because of alcohol intake which damage the liver , is trending down: Stable Hypotensive, with orthostatic hypotensive , likely from the medication effects of clonidine, hold and decreasing the dose and use as tolerated Improved after IV fluid bolus, now is eating drinking well, will discontinue maintenance IV fluid, URI Symptoms: Resolved Chronic Back Pain: Stable Possible depression :patient is tearful and expresses desire to speak to someone , will have side to continue evaluation patient 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
[2016-11-29 16:00] VITALS: BP 119/66; PULSE 94; TEMP 36.8; O2SAT 98
[2016-11-29 20:00] VITALS: BP 116/70; PULSE 81; TEMP 36.7; O2SAT 97
[2016-11-30] VITALS (7 sets, daily range): BP systolic 98–128; BP diastolic 64–80; PULSE 72–107; TEMP 36.4–36.8; O2SAT 96–99
[2016-11-30] MEDS: LORAZEPAM 2 MG/ML 1 ML VIAL IV PRN ×3 (02:35→13:08)
[2016-11-30] MEDS: OXYCODONE HCL IR 5 MG TAB (IMMEDIATE RELEASE) PO PRN ×5 (03:19→21:33)
[2016-11-30] MEDS: CHLORDIAZEPOXIDE 25 MG CAP PO SCH ×3 (06:13→21:33)
[2016-11-30] MEDS: CLONIDINE HCL 0.1 MG TAB PO SCH ×2 (07:57→13:46)
[2016-11-30] MEDS: ENOXAPARIN 40 MG/0.4 ML SYR SQ SCH (07:58)
[2016-11-30] MEDS: MULTIVITAMIN TAB PO SCH (10:21)
[2016-11-30] MEDS: THIAMINE HCL INJ 250 MG in SODIUM CHLORIDE 0.9% 50ML 50 ML IV SCH (10:22)
--- NOTE | 2016-11-30 14:57 | Hospitalist Progress Note ---
Hospitalist Progress Note Date of Service November 30, 2016. Subjective Pt evaluation today including: conversation w/ patient, physical exam, chart review, lab review, review of studies, review of inpatient medication list Patient seen and evaluated. Patient is restless but denies anxiety. Reporting poor sleep and nursing notes reviewed stating that he was up most of the night. Overnight noted more exaggerated tremors but denied anxiety. He is eager to return home. Did received Ativan 1 mg IV x 3 doses on 11/30 Staff noting he intermittently with disconnect the monitor and will get up without assistance. No seizure activity. Mood is still labile with intermittent tears but mostly pleasant and restless. When explaining the plan he stated "but I haven't drank in 2 weeks" in reference stating of concern for withdrawal symptoms - also stated that he thought maybe some of the withdrawal signs are related to his opioid use "I withdrawal from that too". He then got tearful and stated "I don't even like alcohol" and expressed how it has ruined good things in his life. He does have an outpatient appointment for an ETOH counselor. Also asking that we give him enough pain medications to get him to his next doctor's appointment. Constitutional: No chills, No fever Eyes: No worsening of vision ENT: No sore throat Respiratory: No cough, No shortness of breath Cardiovascular: No chest pain, No palpitations Abdomen: No GI bleeding, No constipation, No diarrhea, No nausea, No pain, No vomiting Musculoskeletal: No calf pain, No swelling Male : No dysuria Neurologic: No numbness/tingling, No vertigo Psychiatric: + insomnia, No anxiety, No depression symptoms Medications Current Inpatient Medications Medications (Trade) Dose Ordered Sig/Liss Route Start Time Stop Time Status Last Admin Dose Admin Acetaminophen (Tylenol Tab) 650 mg Q4H PRN PO 11/25/16 21:45 12/25/16 21:44 Al Hydrox/Mg Hydrox/Simethicone (Maalox Max Susp) 15 ml Q4H PRN PO 11/25/16 21:45 12/25/16 21:44 Magnesium Hydroxide (Milk Of Magnesia Susp) 30 ml Q12H PRN PO 11/25/16 21:45 12/25/16 21:44 Polyethylene (Miralax Powder Packet) 17 gm DAILY PRN PO 11/25/16 21:45 12/25/16 21:44 Chlordiazepoxide (Librium Cap) 25 mg Q8 PO 11/25/16 23:00 11/30/16 23:59 11/30/16 13:46 25 MG Menthol (Nice Sascha) 1 sascha PRN PRN PO 11/26/16 00:30 12/26/16 00:29 Oxycodone HCl (Roxicodone Immediate Rel Tab) 10 mg Q4H PRN PO 11/26/16 04:34 12/10/16 04:33 11/30/16 12:09 10 MG Lorazepam PRN Dosing -Active Protocol Q1H PRN IV 11/26/16 09:00 12/26/16 08:59 11/30/16 13:08 1 MG Thiamine HCl/ Sodium Chloride (Vitamin B-1 Inj/ Nss 50ml) 52.5 ml @ 208 mls/hr DAILY@1000 IV 11/29/16 10:00 12/29/16 09:59 11/30/16 10:22 208 MLS/HR Enoxaparin Sodium (Lovenox Inj) 40 mg QAM SQ 11/28/16 09:00 12/28/16 08:59 11/30/16 07:58 40 MG Clonidine HCl (Catapres Tab) 0.1 mg TID PO 11/28/16 14:00 12/28/16 13:59 11/30/16 13:46 0.1 MG Folic Acid (Folvite Tab) 1 mg QAM PO 11/29/16 09:00 12/29/16 08:59 11/30/16 07:57 1 MG Multivitamins (Multivitamin Tab) 1 tab QAM PO 11/30/16 09:00 12/30/16 08:59 11/30/16 10:21 1 TAB Chlordiazepoxide (Librium Cap) 25 mg BID PO 12/01/16 09:00 12/31/16 08:59 Objective Vital Signs Date Time Temp Pulse Resp B/P Pulse Ox O2 Delivery O2 Flow Rate FiO2 11/30/16 12:00 36.8 94 16 98/79 96 Room Air 11/30/16 12:00 Room Air 11/30/16 07:30 36.7 107 16 122/69 96 Room Air 11/30/16 07:30 Room Air 11/30/16 04:00 Room Air 11/30/16 04:00 36.7 72 16 128/75 96 Room Air 11/30/16 00:00 36.6 78 22 118/80 98 Room Air 11/29/16 23:59 Room Air 11/29/16 20:00 36.7 81 17 116/70 97 Room Air 11/29/16 20:00 Room Air 11/29/16 16:00 98 Room Air 11/29/16 16:00 36.8 94 16 119/66 98 Room Air Physical Exam General Appearance: WD/WN, + mild distress (restless) Eyes: + abnormal sclerae exam (mildly icteric) ENT: hearing grossly normal Neck: supple, no JVD, trachea midline Respiratory/Chest: lungs clear, normal breath sounds, no respiratory distress, no accessory muscle use Cardiovascular: regular rate, rhythm, no gallop, no murmur Abdomen: normal bowel sounds, non tender, soft Extremities: no pedal edema, no calf tenderness Neurologic/Psychiatric: alert, oriented x 3 Skin: normal color, warm/dry Assessment and Plan Mr. Lehman is a 51 y/o male with ETOH and previous withdrawal seizures (on previous attempts to become sober) and complaints of nausea and diarrhea which both have resolved. Reports being sober since discharge in July but relapsed. Reports drinking 1- 2 bottles wine/day ( per ED note reports drinking sometimes more) he also will intermittently drink liquor and beer. Also takes Oxycodone Q4H for chronic pain and didn't take those meds prior to admission and reports he feels that he withdrawals slightly from them as well and that caused the diarrhea. Transferred to ICU because worsening agitation and anxiety and possible pending delirium (RESOLVED) and currently downgraded to telemetry. ETOH Abuse and Withdrawal: 1-2 bottles wine/day and +: Last drink 11/25: H/O Previous Withdrawal Seizures - Transferred to ICU for AMS and DTs - has been downgraded to telemetry status - Seizure precautions - fall/aspiration precautions - LFTs trending down - AWSS protocol with Librium 25 mg Q12H with plan to taper BID dosing x 3 days then daily dosing x 3 days then stop - Continue oral vitamin supplementation Hypotension with Orthostasis 2/2 Clonidine: - Consideration for decrease dosing pending BP monitoring - Clonidine 0.1 mg TID currently Marijuana Use: + Drug Screen - Encourage Cessation Chronic Back Pain: - Oxycodone 10 mg Q4H PRN DVT Prophylaxis: Lovenox 40 mg SC daily Code Status: FULL RESUSCITATION Disposition: - [employer] following - plan for D/C home with outpatient alcohol counseling -- Legal issues pending with possible half-way time - Would like to monitor overnight as restlessness, tremors, and insomnia may be manifestations of withdrawal - likely DC tomorrow Continued [facility] stay due to: multiple IV medications needed Discharge planning: home
[2016-12-01] MEDS: OXYCODONE HCL IR 5 MG TAB (IMMEDIATE RELEASE) PO PRN ×3 (02:56→12:52)
[2016-12-01 04:00] VITALS: BP 102/75; PULSE 89; TEMP 36.7; O2SAT 96
[2016-12-01 07:30] VITALS: BP 117/65; PULSE 94; TEMP 36.7; O2SAT 96
[2016-12-01] MEDS: MULTIVITAMIN TAB PO SCH (08:21)
[2016-12-01] MEDS: ENOXAPARIN 40 MG/0.4 ML SYR SQ SCH (08:22)
[2016-12-01] MEDS ORDERED: MULT-589 PO (08:34)
[2016-12-01] MEDS ORDERED: FLV1 PO (08:34)
[2016-12-01] MEDS ORDERED: LBR25 PO (08:34)
[2016-12-01] MEDS ORDERED: CHLORDIAZEPOXIDE 25 MG CAP PO SCH (09:00)
[2016-12-01] MEDS ORDERED: THIAMINE HCL 100 MG TAB PO SCH (09:00)
--- NOTE | 2016-12-01 09:42 | Discharge Instructions ---
Discharge Instructions Date of Service December 01, 2016. Admission Reason for Admission: Alcohol Withdrawal Discharge Discharge Diagnosis / Problem: Alcohol Withdrawal Discharge Goals Goal(s): Decrease discomfort, Improve function, Increase independence Activity Recommendations Activity Limitations: resume your previous activity . Instructions / Follow-Up Instructions / Follow-Up Alcohol Use and Withdrawal: - You MUST abstain from alcohol consumption and avoid areas of temptation including being around others who drink or establishments that sell alcohol. - Please keep your outpatient follow-up appointment with your alcohol counselor for assistance and monitoring of your progress. - A list of inpatient facilities was given and do not hesitate to consider one of these facilities for assistance in your recovery - You were started on Librium at the hospital to help with withdrawal symptoms and will be tapered at home. -- Take one tablet this evening 12/01 -- Take one tablet in the morning and one tablet at night on 12/02 -- Take one tablet daily on 12/03 and 12/04 -- Take 1/2 tablet on 12/05 and 1/2 tablet on 12/06 - You will also receive a prescription for vitamins that we recommend you take daily as it is common to be deficit in these vitamins with alcohol intake Marijuana Use: You tested positive for this on drug screening and recommend to avoid use Chronic Back Pain: - Continue your pain medications as prescribed. You were reviewed in the drug monitoring database and no issues were found. - According to the last prescription date and being admitted to the hospital for 6 days you should have medication remaining and will not receive a prescription from the hospital - Please call your prescribing doctor to get continuing prescriptions Current Hospital Diet Patient's current hospital diet: Regular Diet Discharge Diet Recommended Diet: Regular Diet Pending Studies Studies pending at discharge: no Laboratory Results Hemoglobin A1c Test 11/28/16 05:36 Range/Units Estimated Average Glucose 120 mg/dl Hemoglobin A1c 5.8 H 4.5-5.6 % Medical Emergencies . Who to Call and When: Medical Emergencies: If at any time you feel your situation is an emergency, please call 911 immediately. . Non-Emergent Contact Non-Emergency issues call your: Primary Care Provider Call Non-Emergent contact if: you have a fever, your pain is concerning you, you have any medication questions . . "Provider Documentation" section prepared by Avani Yo. . VTE Core Measure Inpt VTE Proph given/why not?: Enoxaparin (Lovenox)SQ, SCD's [place] Drug Monitoring Program Search Results: patient reviewed within database, no issues identified Drug Monitoring Findings: You received a prescription for Oxycodone on 11/13 with a 22 day supply. Since you were admitted for 6 days you should have medications at home for use. Please discuss with the prescribing doctor for further prescriptions and monitoring.
[2016-12-01 10:12] VITALS: BP 117/65; PULSE 94; TEMP 36.7; O2SAT 96
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
== END 2016-12-01 14:27 | disposition home or self-care (01) | DRG 897 ==
LOC: ENRESERVTM → ENRESERVDT → C.EDB 18:32 → C.2T 21:38 → C.MSICU 11-27 10:44
PROVIDERS: ADMIT Internal Medicine; ATTEND Hospitalist
DX: F10.239 Alcohol dependence with withdrawal, unspecified (principal); Z83.3 Family history of diabetes mellitus; Z82.49 Family history of ischemic heart disease and other diseases of the circulatory system; F17.200 Nicotine dependence, unspecified, uncomplicated; G89.29 Other chronic pain; M54.9 Dorsalgia, unspecified; D69.6 Thrombocytopenia, unspecified; F10.94 Alcohol use, unspecified with alcohol-induced mood disorder

== ENCOUNTER → 2017-10-16 | Outpatient (CLI) | payer OTHER ==
[~2017-10-16] MED LIST changes: +CHOLCAP2 PO; +LBR25 PO; +MULT-589 PO; +THIA100T11 PO; -THM100 PO
[2017-10-16 14:43] LABS: HEMATOCRIT 36.9 % (42-52); HEMOGLOBIN 12.6 g/dL (14.0-18.0); MEAN CELL VOLUME 92.9 fL (80-100); MEAN CORPUSCULAR HEMOGLOBIN 31.7 pg (25-34); MEAN CORPUSCULAR HGB CONC 34.1 g/dl (32-36); MEAN PLATELET VOLUME 9.5 fL (7.4-10.4); PLATELET COUNT 179 K/uL (130-400); RED CELL DISTRIBUTION WIDTH CV 13.8 % (11.5-14.5); WHITE BLOOD COUNT 6.32 K/uL (4.8-10.8)
[2017-10-16 14:54] LABS: ALBUMIN 3.5 gm/dl (3.4-5.0); ALT/SGPT 30 U/L (12-78); BLOOD UREA NITROGEN 9 mg/dl (7-18); CARBON DIOXIDE 24 mmol/L (21-32); CREATININE 0.88 mg/dl (0.60-1.40); GLUCOSE 110 mg/dl (70-99); POTASSIUM 3.5 mmol/L (3.5-5.1); SODIUM 140 mmol/L (136-145)
[2017-10-16 14:56] LABS: ALKALINE PHOSPHATASE 89 U/L (45-117); AST/SGOT 33 U/L (15-37); TOTAL PROTEIN 6.6 gm/dl (6.4-8.2)
[2017-10-17 06:01] LABS: HEMOGLOBIN A1C 5.9 % (4.5-5.6)
== END | disposition home or self-care (01) ==
LOC: C.LAB 13:40
PROVIDERS: ATTEND Physician Assistant
DX: E11.9 Type 2 diabetes mellitus without complications (principal); E55.9 Vitamin D deficiency, unspecified; E51.9 Thiamine deficiency, unspecified; I10 Essential (primary) hypertension